=== PATIENT | male | born 1990 | race Caucasian/White ===

== ENCOUNTER 2018-02-15 06:27 | Day surgery (SDC) | payer OTHER ==
[2018-02-14 16:49] LABS: Absolute Lymphocytes (CBC) 2.7 K/uL (0.7-4.9); Absolute Monocytes 0.8 K/uL (0.1-1.3); Basophils % 0.7 % (0-1.3); Eosinophils % 3.1 % (0-4.4); Hematocrit 44.9 % (39.6-49.0); Lymphocytes % 27.6 % (15.3-44.8); MCH 29.7 pg (27.0-35.0); MCV 87.8 fL (80-100); MPV 9.6 fL (7.6-11.3); Monocytes % 7.9 % (3.3-12.3); RBC Red Blood Cell Count 5.12 M/uL (4.33-5.43)
[2018-02-14 19:24] LABS: Potassium 3.6 mmol/L (3.5-5.1)
[2018-02-15] MEDS ORDERED: LIDOCAINE 1% MPF 5 ML VIAL ONE (06:45)
[2018-02-15] MEDS ORDERED: Ringers Lactate 1,000 ML IV ONE (07:11)
[2018-02-15] MEDS ORDERED: METHYLENE BLUE 0.5% 10 ML AMP ONE (07:14)
[2018-02-15] MEDS ORDERED: MIDAZOLAM HCL 2 MG/2 ML INJ ONE (07:20)
[2018-02-15] MEDS ORDERED: PROPOFOL 200 MG/20 ML VIAL IV ONE (07:20)
[2018-02-15] MEDS ORDERED: ROCURONIUM 50 MG/5 ML VIAL IV ONE (07:21)
[2018-02-15] MEDS ORDERED: FENTANYL CITR 100 MCG/2 ML ONE (07:21)
[2018-02-15] MEDS ORDERED: ONDANSETRON HCL 40 MG/20 ML VIAL ONE (07:22)
[2018-02-15] MEDS ORDERED: CEFAZOLIN/SWI 1gm 1 GM/10 ML SYR ONE (07:38)
[2018-02-15] MEDS ORDERED: GLYCOPYRROLATE 0.2 MG/ML SYR ONE ×2 (08:21→08:23)
[2018-02-15] MEDS ORDERED: NEOSTIGMINE 1 MG/ML -5 ML SYRINGE ONE (08:22)
[2018-02-15] MEDS ORDERED: HYDROCODONE/APAP 5/325 MG TAB ONE (09:29)
--- NOTE | 2018-02-27 22:24 | DS ---
Date of Discharge: 02/15/2018 Diagnosis: Infected pilonidal cyst. Procedure: Wide excision of infected pilonidal cyst. Disposition: Home. Activity: As tolerated. No heavy lifting. Followup: Follow up in my office in 1 week. Call for appointment [phone]. Wet-to-dry dressing to the sacral area daily. Medications: See orders. JOELLE/DHAVAL Voice ID: [id number] Report ID: [id number]
--- NOTE | 2018-02-27 22:24 | OP ---
Date of Procedure: 02/15/2018 Surgeon: Israel Monahan MD Diagnosis: Infected pilonidal cyst. Postoperative Diagnosis: Infected pilonidal cyst. Procedure: Wide excision of infected pilonidal cyst. Anesthesia: General plus local. Indications: This is a case of a female, who came to us with infected pilonidal cyst with drainage. Benefits, alternatives, and risks of wide excision were fully explained which include but are not li mited to infection, bleeding, damage to adjacent structures, anesthesia complication, recurrence, PA, even . She also understands this may not relieve any symptoms. She might need more than one s urgical intervention. She understood and signed a consent. She also understands that she will requi re a wound care since the area is infected and most likely is going to have to be left open to close by secondary intention. Procedure In Detail: The patient was brought to the operating room, placed in supine position. Anes thesia was done without complication. The patient was placed in prone position with proper protectio n. The sacral and buttock area were prepped and draped in a sterile fashion. Blue dye was placed wi th a catheter through the opening of that infected pilonidal cyst to help delineate the wall. After that, a wedge incision was made in the skin all the way down to sacrum. This is about 12 x 3 cm and about 3 cm deep. The area was irrigated and packed with wet-to-dry dressing. The patient tolerated the procedure well. Local anesthesia was placed for anesthetic. The patient was sent to Recovery in stable condit ion. JOELLE/DHAVAL Voice ID: [id number] Report ID: [id number]
== END 2018-02-15 10:20 | disposition home or self-care (01) ==
LOC: OR 06:27
PROVIDERS: ATTEND Surgery
PROC: 0JB90ZZ Excision of Buttock Subcutaneous Tissue and Fascia, Open Approach (ICD-10-PCS; principal; 2018-02-15 07:30)
DX: L05.91 Pilonidal cyst without abscess (principal); F17.200 Nicotine dependence, unspecified, uncomplicated
CPT/HCPCS: 36415; 80048; 85025; 88304; J0690; J2250; J2405; J2710; J3010